=== PATIENT | male | born 1970 | race African-American/Black ===

== ENCOUNTER 2024-12-15 15:18 | Emergency (ER) | payer BC, SELFPAY ==
[2024-12-15] MEDS ORDERED: Acetaminophen 500 MG TAB ONE (15:47)
[2024-12-15] MEDS ORDERED: Ketorolac Tromethamine 30 MG (1 mL) VIAL ONE (15:47)
[2024-12-15 15:56] LABS: #Basophils 0.04 10x3/uL (0.0-0.2); #Eosinophils 0.03 10x3/uL (0.0-0.7); #Monocytes 0.52 10x3/uL (0.11-0.59); #Neutrophils 2.95 10x3/uL (1.40-6.50); %Basophils 0.7 % (0.0-1.0); %Eosinophils 0.5 % (0.0-10.0); %Lymphocytes 36.0 % (21.0-51.0); %Monocytes 9.4 % (0.0-10.0); %Neutrophils 53.0 % (42.0-75.0); Hematocrit 35.7 % (42.0-52.0); Hemoglobin 13.0 g/dL (14.0-18.0); Mean Corpuscular Hemoglobin 36.2 pg (27.0-31.0); Mean Corpuscular Volume 99.4 fL (78.0-98.0); Platelet Count 384 10x3/uL (130-400); Red Blood Cell (RBC) Count 3.59 mill/uL (4.70-6.10); White Blood Cell (WBC) Count 5.56 10x3/uL (4.8-10.8)
[2024-12-15 16:06] LABS: ALT (SGPT) 115 U/L (Less than 45); AST (SGOT) 103 U/L (11-34); Albumin 3.4 g/dL (3.1-4.5); Alkaline Phosphatase 121 U/L (40-110); Anion Gap 15 mmol/L (10-20); BUN (Urea Nitrogen) 23 mg/dL (8.4-25.7); Bilirubin, Total 0.6 mg/dL (0.3-1.2); Calc. Creatinine Clearance 0 mL/min (70-130); Calcium 8.4 mg/dL (7.8-10.44); Carbon Dioxide 19 mmol/L (22-29); Chloride 104 mmol/L (98-107); Globulin 3.9 g/dL (2.4-3.5); Glucose 148 mg/dL (70-105); Lipase 62 U/L (8-78); Potassium 4.0 mmol/L (3.5-5.1); Sodium 134 mmol/L (136-145)
[2024-12-15 16:09] LABS: Bacteria/HPF None Seen HPF (None Seen); CAUTI Indications for Culture < 2yrs of age; Glucose, Urine (Dipstick) Normal (Negative); Leukocyte Negative Leu/uL (Negative); Protein, Urine (Dipstick) Negative (Neg-Trace); RBC/HPF 0-3 HPF (0-3); Specific Gravity, Urine 1.023 (1.002-1.036); WBC/HPF 0-3 HPF (0-3)
[2024-12-15 16:10] LABS: Urine Culture Reflex Yes Yes
[2024-12-15] MEDS ORDERED: Dexamethasone 10 MG/ML VIAL ONE (16:43)
== END 2024-12-15 15:50 | disposition home or self-care (01) ==
LOC: ERS 15:18
DX: M54.12 Radiculopathy, cervical region (principal); R29.898 Other symptoms and signs involving the musculoskeletal system; I10 Essential (primary) hypertension; F17.210 Nicotine dependence, cigarettes, uncomplicated; Z79.899 Other long term (current) drug therapy
CPT/HCPCS: 36415; 80053; 81001; 83690; 85025; 87086; 96372; 99284; J1100; J1885